=== PATIENT | female | born 1985 | race Caucasian/White ===

== ENCOUNTER 2017-03-08 00:58 | Emergency (ER) | payer OTHER ==
[2017-03-08] MEDS ORDERED: Metoclopramide HCl 10 MG/2 ML VIAL ONE (01:19)
[2017-03-08] MEDS ORDERED: methylPREDNISolone Sod Succ/PF 125 MG/2 ML VIAL ONE (01:19)
[2017-03-08] MEDS ORDERED: diphenhydrAMINE HCl 50 MG/ML 1 ML VIAL ONE (01:19)
[2017-03-08] MEDS ORDERED: Magnesium Sulfate 2 GM/NS 0.9% 50 ML BAG ONE (01:21)
[2017-03-08] MEDS ORDERED: Water For Inject, Bacteriostat 30 ML ONE (01:21)
== END 2017-03-08 02:44 | disposition home or self-care (01) ==
LOC: SCSER 00:58
DX: G43.909 Migraine, unspecified, not intractable, without status migrainosus (principal); J45.909 Unspecified asthma, uncomplicated
CPT/HCPCS: 96365; 96368; 96375; J1200; J2765; J2930; J3475

== ENCOUNTER 2019-02-06 01:48 | Emergency (ER) | payer OTHER ==
[2019-02-06] MEDS ORDERED: diphenhydrAMINE 50 MG/ML VIAL ONE (02:07)
[2019-02-06] MEDS ORDERED: Prochlorperazine 10 MG/2 ML VIAL ONE (02:07)
== END 2019-02-06 02:41 | disposition home or self-care (01) ==
LOC: SCSER 01:48
DX: G43.909 Migraine, unspecified, not intractable, without status migrainosus (principal); J45.909 Unspecified asthma, uncomplicated; Z79.899 Other long term (current) drug therapy
CPT/HCPCS: 96374; 96375; J0780; J1200